=== PATIENT | female | born 1935 | race Caucasian/White ===

== ENCOUNTER → 2020-07-07 | Outpatient (CLI) | payer OTHER ==
--- NOTE | 2020-07-07 14:32 | Diagnostic Imaging Report ---
INDICATION: 85-year-old asymmetric postmenopausal female. COMPARISON: None available. FINDINGS: AP Spine L2-L4: [BMD (g/cm2): 0.960] [T-Score: -2.0] [Z-Score: 0.1] [BMD Previous: na] [BMD % Change: na] LT Hip Neck: [BMD (g/cm2): 0.928] [T-Score: -0.8] [Z-Score: 1.7] LT Hip Total: [BMD (g/cm2):0.942] [T-Score:-0.5] [Z-Score: 1.9] [BMD Previous: na] [BMD % Change: na] RT Hip Neck: [BMD (g/cm2):0.891] [T-Score:-1.1] [Z-Score:1.4] RT Hip Total: [BMD (g/cm2):0.875] [T-score:-1.1] [Z-Score:1.4] [BMD Previous:na] [BMD % Change:na] *Indicates significant change from prior examination based on 95% confidence level. World Health Organization criteria for BMD interpretation classify patients as Normal (T-score at or above -1.0), Osteopenic (T-score between -1.0 and -2.5) or Osteoporotic (T-score at or below -2.5). LIMITATIONS AND MODIFICATION: None. FRACTURE RISK (FRAX SCORE): The ten year probability of (%): Major Osteoporotic Fracture: [10.5] Hip Fracture: [2.7] IMPRESSION: 1. Osteopenia (Low bone mass). 2. Baseline examination. 3. See below National Osteoporosis Foundation guidelines on when to potentially initiate pharmacologic therapy. Based on the National Osteoporosis Foundation Guidelines, pharmacologic treatment should be initiated in any of the following, unless clinical conditions suggest otherwise: * Any patient with prior fragility fracture of the hip or vertebrae. A spine fracture indicates 5X risk for subsequent spine fracture and 2X risk for subsequent hip fracture. * Osteoporosis (T-score <-2.5). * Postmenopausal women and men age 50 and older with low bone mass/osteopenia (T-score between -1.0 and -2.5) by DXA and 10-year major osteoporotic fracture greater than 20% or a 10-year probability of hip fracture greater than 3%. These fracture risks are supplied above in the FRAX score, if applicable. * Clinician judgement and/or patient preferences may indicate treatment for people with 10-year fracture probabilities above or below these levels. Dictated by: Dictated on workstation # [id number]
== END ==
LOC: RAD 12:30
PROVIDERS: ATTEND Family Medicine
DX: M85.89 Other specified disorders of bone density and structure, multiple sites (principal); Z78.0 Asymptomatic menopausal state
CPT/HCPCS: 77080

== ENCOUNTER 2021-02-12 17:14 | Emergency (ER) | payer MEDICARE, OTHER ==
--- NOTE | 2021-02-12 17:46 | ED Fall/Injury ---
General Chief Complaint: Trauma-Non Activation Stated Complaint: FALL,SHOULDER PAIN Source: patient Exam Limitations: no limitations (GERARDO NOLEN,) History of Present Illness Date Seen by Provider: Feb 12, 2021 Time Seen by Provider: 17:41 Initial Comments Ms. Howard is an 85-year-old female who presented to the ED via EMS for a fall at home. Patient states she was on the back porch with her daughter and got her feet tangled up and fell. She did hit her head and fell face down. She denies any loss of consciousness or dizziness prior to the fall. She states she is having right shoulder, right hand, and right knee pain. She denies any blurred vision or vision loss, headache, chest pain, shortness of breath, nausea, vomiting. Occurred: this afternoon Severity: moderate Injuries/Pain Location: head, face, upper extremity, lower extremity Context: lost balance Loss of Consciousness: no loss of consciousness Modifying Factors: Improves With Immobilization; Worse With Movement Associated Symptoms (Fall): No Confusion, No Dizziness, No Headache, No Lightheadedness, No Nausea/Vomiting, No Shortness of Air, No Slurred Speech, No Trouble Walking, No Vision Changes (GERARDO NOLEN,) Injuries/Pain Location: head, face, upper extremity, lower extremity Context: lost balance Loss of Consciousness: no loss of consciousness Associated Symptoms (Fall): No Confusion, No Dizziness, No Headache, No Shortness of Air (ANNETTE LUCIO MD) Allergies and Home Medications Allergies Coded Allergies: Sulfa (Sulfonamide Antibiotics) (Verified Allergy, Unknown, 02/12/21) iodine (Verified Allergy, Unknown, 02/12/21) Patient Home Medication List Home Medication List Reviewed: Yes (GERARDO NOLEN,) Home Medication List Reviewed: Yes (ANNETTE LUCIO MD) Review of Systems Review of Systems Constitutional: No dizziness, No weakness Eyes: Denies Blurred Vision, Denies Decreased Acuity Ears, Nose, Mouth, Throat: no symptoms reported Respiratory: No short of breath Cardiovascular: No chest pain Gastrointestinal: No nausea, No vomiting Genitourinary: No dysuria, No frequency Musculoskeletal: joint pain, muscle pain Psychiatric/Neurological: Denies Headache, Denies Numbness, Denies Weakness (GERARDO NOLEN,) All Other Systems Reviewed Negative Unless Noted: Yes (ANNETTE LUCIO MD) Past Eerxljb-Kmmotq-Gmhddg Hx Past Med/Social Hx: Reviewed Nursing Past Med/Soc Hx (GERARDO NOLEN,) Past Med/Social Hx: Reviewed Nursing Past Med/Soc Hx (ANNETTE LUCIO MD) Patient Social History Alcohol Use: Denies Use Smoking Status: Never a Smoker (GERARDO NOLEN,) Past Medical History Surgeries: Yes Orthopedic Respiratory: No Cardiac: No Neurological: No Reproductive Disorders: No Gastrointestinal: No Musculoskeletal: Yes Osteoporosis HEENT: No Cancer: Yes Breast Did You Recieve Any Treatments: Yes What Type of Treatment Did You: Chemotherapy, Surgical Intervention Psychosocial: No Integumentary: No (GERARDO NOLEN,) Family Medical History Reviewed Nursing Family Hx (GERARDO NOLEN,) Reviewed Nursing Family Hx (ANNETTE LUCIO MD) No Pertinent Family Hx (GERARDO NOLEN,) No Pertinent Family Hx (ANNETTE LUCIO MD) Physical Exam Vital Signs Vital Signs - First Documented 02/12/21 17:15 Temp 36.4 Pulse 88 Resp 15 B/P (MAP) 163/75 (104) Pulse Ox 95 O2 Delivery Room Air (ANNETTE LUCIO MD) Vital Signs Capillary Refill : (GERARDO NOLEN,) Height, Weight, BMI Height: '" Weight: lbs. oz. kg; BMI Method: General Appearance: WD/WN, no apparent distress HEENT: PERRL/EOMI Neck: supple, normal inspection Cardiovascular: regular rate, rhythm, no murmur Respiratory: lungs clear, normal breath sounds Gastrointestinal: normal bowel sounds, soft, no organomegaly Neurologic/Psychiatric: alert, oriented x 3 Skin: warm/dry, ecchymosis (over right eye) (GERARDO NOLEN,) General Appearance: WD/WN, no apparent distress HEENT: PERRL/EOMI, pharynx normal Neck: non-tender, supple Cardiovascular: regular rate, rhythm, no murmur Respiratory: lungs clear, normal breath sounds Gastrointestinal: normal bowel sounds, soft Back: normal inspection, no CVA tenderness, no vertebral tenderness Extremities: other (Tender to right shoulder and right knee. Complains of right hand pain but has full range of motion.) Neurologic/Psychiatric: alert, oriented x 3 Skin: warm/dry, ecchymosis (over right eye) (ANNETTE LUCIO MD) [place] Coma Score Best Eye Response: (4) Open Spontaneously Best Verbal Response: (5) Oriented Best Motor Response: (6) Obeys Commands (GERARDO NOLEN,) Progress/Results/Core Measures Results/Orders My Orders Orders - ANNETTE LUCIO MD Shoulder 3 View Right (02/12/21 17:27) Ct Head Wo (02/12/21 17:27) Knee 3 View Right (02/12/21 17:27) (ANNETTE LUCIO MD) Vital Signs/I&O 02/12/21 17:15 Temp 36.4 Pulse 88 Resp 15 B/P (MAP) 163/75 (104) Pulse Ox 95 O2 Delivery Room Air (ANNETTE LUCIO MD) Progress Progress Note : Time: 17:47 Progress Note Will order right shoulder, right hand, right knee XR. Lengthy discussion regarding CT imaging of head. Patient agreeable after counselling. Will proceed with treatment as results return. Declined analgesia at this time. (GERARDO NOLEN,) Progress Note : Progress Note I have seen and evaluated the patient and agree with above except as indicated. I have directed the plan of care. Patient is here after fall where she believes she tripped while on the back deck. She fell face first onto her right shoulder, right hand, right knee and right face. Denies loss of consciousness. This helped up by a neighbor and fire. Presented here with pain with main complaint of right shoulder pain. We did discuss radiological evaluation options and she has elected for CT of the head as well as x-ray of the shoulder and right knee but declined right hand x-ray after ordered. Monitor patient. 1835: Right shoulder does show fracture of proximal humerus. We will place her in sling and have her follow-up with Maikel Vargas. She is familiar with him and has worked with him previously. Discharged home with return precautions. Patient and family verbalized understanding of instructions and agreement with plan. Declined pain medication here. (ANNETTE LUCIO MD) Diagnostic Imaging Diagonstic Imaging: CT Plain Films/CT/US/NM/MRI: head Comments NAME: J[facility]VIR [facility] REC#: [id number] PT STATUS: REG ER : 1935 PHYSICIAN: ANNETTE LUCIO MD ADMIT DATE: 02/12/21/ER FS Draft Date of Exam:02/12/21 CT HEAD WO PROCEDURE: CT head without contrast. TECHNIQUE: Multiple contiguous axial images were obtained through the brain without the use of intravenous contrast. Auto Exposure Controls were utilized during the CT exam to meet ALARA standards for radiation dose reduction. INDICATION: Fall, hit head. COMPARISON: None available. FINDINGS: Age-appropriate volume loss. No intracranial hemorrhage. No intracranial mass, mass effect, midline shift, herniation, hydrocephalus, or extra-axial fluid collection. No definite CT evidence of an acute ischemic infarction. Minimal soft tissue swelling is noted within the right supraorbital region without associated calvarial fracture. Significant mucosal thickening and fluid is noted within the bilateral ethmoid air cells, sphenoid sinuses, right greater than left maxillary sinuses, and the bilateral mastoid air cells. IMPRESSION: No acute intracranial abnormality. Mild right supraorbital soft tissue swelling without underlying calvarial fracture. Extensive paranasal sinus disease. This includes partial opacification of the bilateral mastoid air cells. Dictated on workstation # [id number] Dict: 02/12/21 1747 Trans: 02/12/21 1752 [id number] Interpreted by: BHUMIKA GARCIA MD Electronically signed by: Reviewed: Reviewed by Me Diagonstic Imaging: Xray Plain Films/CT/US/NM/MRI: knee Comments NAME: JASVIR [facility] REC#: [id number] PT STATUS: REG ER : 1935 PHYSICIAN: ANNETTE LUCIO MD ADMIT DATE: 02/12/21/ER FS Draft Date of Exam:02/12/21 KNEE 3 VIEW RIGHT INDICATION: Fall. Bruising to right knee. FINDINGS: There are tricompartment osteoarthritic changes present within the knee with most advanced joint space loss within the medial and patellofemoral compartments. There is note of chondrocalcinosis demonstrated within the medial and lateral menisci. The bones are osteopenic. There is no acute fracture. There is no knee joint effusion. Regional soft tissues are unremarkable. IMPRESSION: 1. 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 No malalignment, acute fracture or suspicious bone lesion demonstrated. There is no evidence of a knee joint effusion. Dictated on workstation # [id number] Dict: 02/12/211806 Trans: 02/12/211808 [facility] [id number] Interpreted by: JOSUE HERRERA MD Electronically signed by: Reviewed: Reviewed by Me Diagonstic Imaging: Xray Plain Films/CT/US/NM/MRI: other (R shoulder) Comments NAME: JASVIR [facility] REC#: [id number] PT STATUS: REG ER : 1935 PHYSICIAN: ANNETTE LUCIO MD ADMIT DATE: 02/12/21/ER FS Signed Date of Exam:02/12/21 SHOULDER 3 VIEW RIGHT INDICATION: Fall. COMPARISON: None available. TECHNIQUE: Three radiographs of the right shoulder dated 02/12/2021. FINDINGS: Mild degenerative changes of the acromioclavicular joint. Vertically oriented lucency with overall lapping shadows is identified involving the proximal aspect of the right humeral shaft extending superiorly to the humeral head. This does not definitely extend to the articular surface. Mild degenerative changes of the acromioclavicular joint. No additional fracture or dislocation. No large volume pleural effusion or pneumothorax. No suspicious radiopaque foreign body. IMPRESSION: Suggestion of an essentially nondisplaced fracture involving the proximal humeral shaft extending to the superior aspect of the right humeral head. This can be confirmed with CT. Mild degenerative changes. Dictated by: Dictated on workstation # [id number] Dict: 02/12/211805 Trans: 02/12/211811 [facility] [id number] Interpreted by: BHUMIKA GARCIA MD Electronically signed by: BHUMIKA GARCIA MD 02/12/211811 Reviewed: Reviewed by Me (GERARDO NOLEN,) Reviewed: Reviewed by Me Reviewed: Reviewed by Me Reviewed: Reviewed by Me (ANNETTE LUCIO MD) Departure Impression Primary Impression: Closed fracture of right proximal humerus Qualified Codes: S42.294A - Other nondisplaced fracture of upper end of right humerus, initial encounter for closed fracture Additional Impressions: Facial contusion Qualified Codes: S00.83XA - Contusion of other part of head, initial encounter Minor head injury Qualified Codes: S09.90XA - Unspecified injury of head, initial encounter Contusion of right knee Qualified Codes: S80.01XA - Contusion of right knee, initial encounter Disposition: 01 HOME, SELF-CARE Condition: Stable Departure-Patient Inst. Decision time for Depature: 18:37 (ANNETTE LUCIO MD) Referrals: NO,LOCAL PHYSICIAN (PCP/Family) Primary Care Physician Patient Instructions: Minor Head Injury (DC), Contusion (DC), Upper Arm Fracture Add. Discharge Instructions: All discharge instructions reviewed with patient and/or family. Voiced understanding. Follow-up with Maikel Vargas early next week. Call his office first thing Monday for appointment. Use sling at all times except while showering. You may take Tylenol/acetaminophen 1000 mg every 6-8 hours as needed for pain. You may take ibuprofen 400 mg every 8 hours as needed for pain only if the Tylenol/acetaminophen is not working. Return for worse pain, weakness, vision or balance problems, vomiting or other concerns as needed. Copy Copies To 1: RAY VARGAS LAUREN, Feb 12, 2021 17:46 ANNETTE LUCIO MD Feb 12, 2021 18:38
--- NOTE | 2021-02-12 17:53 | Diagnostic Imaging Report ---
PROCEDURE: CT head without contrast. TECHNIQUE: Multiple contiguous axial images were obtained through the brain without the use of intravenous contrast. Auto Exposure Controls were utilized during the CT exam to meet ALARA standards for radiation dose reduction. INDICATION: Fall, hit head. COMPARISON: None available. FINDINGS: Age-appropriate volume loss. No intracranial hemorrhage. No intracranial mass, mass effect, midline shift, herniation, hydrocephalus, or extra-axial fluid collection. No definite CT evidence of an acute ischemic infarction. Minimal soft tissue swelling is noted within the right supraorbital region without associated calvarial fracture. Significant mucosal thickening and fluid is noted within the bilateral ethmoid air cells, sphenoid sinuses, right greater than left maxillary sinuses, and the bilateral mastoid air cells. IMPRESSION: No acute intracranial abnormality. Mild right supraorbital soft tissue swelling without underlying calvarial fracture. Extensive paranasal sinus disease. This includes partial opacification of the bilateral mastoid air cells. Dictated by: Dictated on workstation # [id number]
--- NOTE | 2021-02-12 18:10 | Diagnostic Imaging Report ---
INDICATION: Fall. Bruising to right knee. FINDINGS: There are tricompartment osteoarthritic changes present within the knee with most advanced joint space loss within the medial and patellofemoral compartments. There is note of chondrocalcinosis demonstrated within the medial and lateral menisci. The bones are osteopenic. There is no acute fracture. There is no knee joint effusion. Regional soft tissues are unremarkable. IMPRESSION: 1. 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 No malalignment, acute fracture or suspicious bone lesion demonstrated. There is no evidence of a knee joint effusion. Dictated by: Dictated on workstation # [id number]
--- NOTE | 2021-02-12 18:11 | Diagnostic Imaging Report ---
INDICATION: Fall. COMPARISON: None available. TECHNIQUE: Three radiographs of the right shoulder dated 02/12/2021. FINDINGS: Mild degenerative changes of the acromioclavicular joint. Vertically oriented lucency with overall lapping shadows is identified involving the proximal aspect of the right humeral shaft extending superiorly to the humeral head. This does not definitely extend to the articular surface. Mild degenerative changes of the acromioclavicular joint. No additional fracture or dislocation. No large volume pleural effusion or pneumothorax. No suspicious radiopaque foreign body. IMPRESSION: Suggestion of an essentially nondisplaced fracture involving the proximal humeral shaft extending to the superior aspect of the right humeral head. This can be confirmed with CT. Mild degenerative changes. Dictated by: Dictated on workstation # [id number]
[2021-02-12 18:47] VITALS: BP 163/75
== END 2021-02-12 18:46 | disposition home or self-care (01) ==
LOC: EDUNIT# 17:14 → ER FS 17:15
DX: S42.294A Other nondisplaced fracture of upper end of right humerus, initial encounter for closed fracture (principal); S09.90XA Unspecified injury of head, initial encounter; S05.11XA Contusion of eyeball and orbital tissues, right eye, initial encounter; S80.01XA Contusion of right knee, initial encounter; M79.601 Pain in right arm; C50.919 Malignant neoplasm of unspecified site of unspecified female breast; M81.0 Age-related osteoporosis without current pathological fracture; Z88.2 Allergy status to sulfonamides; Z88.8 Allergy status to other drugs, medicaments and biological substances; W18.09XA Striking against other object with subsequent fall, initial encounter; Y92.008 Other place in unspecified non-institutional (private) residence as the place of occurrence of the external cause
CPT/HCPCS: 70450; 73030; 73562

== ENCOUNTER → 2021-02-15 | Outpatient (CLI) | payer MEDICARE ==
--- NOTE | 2021-02-15 17:01 | Diagnostic Imaging Report ---
EXAMINATION: Right shoulder, 2 or more views. HISTORY: Fracture. COMPARISON: 02/12/2021. FINDINGS: There is a healing fracture of the right proximal humerus in unchanged alignment. No new fracture is seen. The glenohumeral joint is normal without dislocation. IMPRESSION: Healing right proximal humeral fracture. Dictated by: Dictated on workstation # [id number]
== END ==
LOC: RAD FS 13:59
PROVIDERS: ATTEND Nurse Practitioner
DX: S42.231D 3-part fracture of surgical neck of right humerus, subsequent encounter for fracture with routine healing (principal)
CPT/HCPCS: 73030

== ENCOUNTER → 2021-03-01 | Outpatient (CLI) | payer MEDICARE ==
--- NOTE | 2021-03-01 16:05 | Diagnostic Imaging Report ---
INDICATION: Right shoulder injury. FINDINGS: Three views of the right shoulder show a transverse fracture of the humeral neck with a longitudinal fracture through the radial tuberosity. The position and alignment appear unchanged compared to 02/15/2021. IMPRESSION: Nondisplaced comminuted fracture of the proximal right humerus, unchanged since 02/15/2021. Dictated by: Dictated on workstation # [id number]
--- NOTE | 2021-03-01 16:27 | Diagnostic Imaging Report ---
INDICATION: Low back pain. FINDINGS: AP and lateral views of the lumbar spine show a grade 1 spondylolisthesis at L4-L5 with slight disc space narrowing at that level. Otherwise, the alignment is normal. There are no compression fractures. The other intervertebral disc spaces are normal. IMPRESSION: Grade 1 spondylolisthesis at L4-L5 with mild disc space narrowing at that level. Dictated by: Dictated on workstation # [id number]
== END ==
LOC: RAD FS 10:21
PROVIDERS: ATTEND Nurse Practitioner
DX: S42.201A Unspecified fracture of upper end of right humerus, initial encounter for closed fracture (principal); M43.16 Spondylolisthesis, lumbar region; M48.061 Spinal stenosis, lumbar region without neurogenic claudication; X58.XXXA Exposure to other specified factors, initial encounter
CPT/HCPCS: 72100; 73030

== ENCOUNTER → 2021-03-08 | Outpatient (CLI) | payer MEDICARE ==
--- NOTE | 2021-03-08 15:51 | Diagnostic Imaging Report ---
INDICATION: SLOW TRANSIT CONSTIPATION; TACHYCARDIA COMPARISON: None. FINDINGS: Supine and upright views of the abdomen show a nondistended bowel gas pattern. No abnormal air fluid levels or free intraperitoneal air is seen. Moderate air and stool is seen scattered throughout the colon. No abnormal extraosseous calcifications are seen. Bony and soft tissue structures are within normal limits. No organomegaly is identified. Accompanying upright chest shows normal heart size and pulmonary vascularity. The lungs are well aerated and clear. The mediastinum is normal in appearance. IMPRESSION: 1. No bowel obstruction or free air. 2. Normal chest. No pneumonia or pulmonary edema. 3. Moderate colonic air and stool. Please correlate for constipation. Dictated by: Dictated on workstation # [id number]
== END ==
LOC: RAD FS 14:08
PROVIDERS: ATTEND Family Medicine
DX: K59.01 Slow transit constipation (principal); R00.0 Tachycardia, unspecified
CPT/HCPCS: 74022

== ENCOUNTER → 2021-03-22 | Outpatient (CLI) | payer MEDICARE ==
[2021-03-22 16:45] LABS: ALANINE AMINOTRANSFERASE 15 U/L (0-55); ALBUMIN 3.9 GM/DL (3.2-4.5); ALKALINE PHOSPHATASE 121 U/L (40-136); BILIRUBIN,TOTAL 0.3 MG/DL (0.1-1.0); BUN/CREATININE RATIO 29; CALCIUM 10.2 MG/DL (8.5-10.1); CARBON DIOXIDE 28 MMOL/L (21-32); CHLORIDE 107 MMOL/L (98-107); CREATININE SERUM 0.78 MG/DL (0.60-1.30); GFR ESTIMATED > 60; GLUCOSE 92 MG/DL (70-105); SODIUM 141 MMOL/L (135-145); TOTAL PROTEIN 6.7 GM/DL (6.4-8.2)
[2021-03-22 16:49] LABS: POTASSIUM 4.2 MMOL/L (3.6-5.0)
--- NOTE | 2021-03-22 17:22 | Diagnostic Imaging Report ---
EXAMINATION: CT abdomen and pelvis without contrast. TECHNIQUE: Multiple contiguous axial images were obtained through the abdomen and pelvis without the use of intravenous contrast. All CT scans use one or more of the following dose optimizing techniques: automated exposure control, MA and/or KvP adjustment based on patient size and exam type or iterative reconstruction. HISTORY: SLOW TRANSIT CONSTIPATION COMPARISON: Acute abdominal series 03/08/2021. FINDINGS: Lung bases: Atelectasis within the lung bases. Solid organs: The liver is normal. The gallbladder is normal. There is no biliary ductal dilation. Pancreas is normal. Spleen is normal. Adrenal glands are normal. The kidneys are normal without visualized calculus or hydronephrosis. Bowel: There is a small hiatal hernia. No bowel obstruction. There is a moderate volume of stool seen throughout the colon. No findings of acute appendicitis. Peritoneum: There is no intraperitoneal free fluid or free air. No suspicious lymphadenopathy. Vasculature: Calcification of the aorta without aneurysm. 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 Musculoskeletal: Multilevel degenerative changes of the spine. There is a compression fracture of the L2 vertebral body which may be new or progressed from 03/01/2021. Pelvis: The uterus and adnexa are normal. The urinary bladder is normal. IMPRESSION: 1. Moderate stool burden throughout the colon compatible with history of constipation. 2. New or progressive compression fracture of the L2 vertebral body compared to 03/01/2021. Recommend correlation with patient history and physical exam. 3. No other acute abnormality in the abdomen or pelvis. Dictated by: Dictated on workstation # [id number]
== END ==
LOC: RAD FS 15:57
PROVIDERS: ATTEND Family Medicine
DX: K59.01 Slow transit constipation (principal); S32.020A Wedge compression fracture of second lumbar vertebra, initial encounter for closed fracture; E78.2 Mixed hyperlipidemia; R10.84 Generalized abdominal pain
CPT/HCPCS: 36415; 74176; 80053

== ENCOUNTER → 2021-03-22 | Outpatient (CLI) | payer MEDICARE ==
--- NOTE | 2021-03-22 10:29 | Diagnostic Imaging Report ---
Indication: Followup right shoulder fracture. Time of exam: 10:20 AM Comparison is made with shoulder radiographs from 03/01/2021. Healing fracture of the proximal humerus again noted. There is some sclerosis at the fracture site of the humeral neck. There also appears to be some blurring of the fracture lines of the more longitudinally oriented fracture through the greater tuberosity. Fracture lines do remain partially visible however. Glenohumeral alignment is normal. Acromioclavicular alignment is normal. Acromiohumeral space is normal. Impression: Healing proximal humerus fracture when compared to examination one month earlier. Dictated by: Dictated on workstation # [id number]
== END ==
LOC: RAD FS 10:04
PROVIDERS: ATTEND Nurse Practitioner
DX: S42.231D 3-part fracture of surgical neck of right humerus, subsequent encounter for fracture with routine healing (principal); X58.XXXD Exposure to other specified factors, subsequent encounter
CPT/HCPCS: 73030

== ENCOUNTER → 2021-04-16 | Outpatient (CLI) | payer MEDICARE | LOC: CARD 13:00 | PROVIDERS: ATTEND Family Medicine | DX: R00.0 Tachycardia, unspecified (principal) | CPT/HCPCS: 93306 ==

== ENCOUNTER 2021-04-21 11:45 | Outpatient (RCR) | payer MEDICARE ==
[2021-04-21] MEDS ORDERED: REGADENOSON 0.4 MG/5 ML SYR (LEXISCAN) IV ONE (12:15)
== END 2021-07-20 | disposition home or self-care (01) ==
LOC: CARD 11:45
PROVIDERS: ATTEND Family Medicine
DX: I25.10 Atherosclerotic heart disease of native coronary artery without angina pectoris (principal); R07.2 Precordial pain; I10 Essential (primary) hypertension; R00.0 Tachycardia, unspecified

== ENCOUNTER → 2021-04-21 | Outpatient (CLI) | payer MEDICARE ==
[~2021-04-21] VITALS: Ht 165 cm; Wt 62.0 kg
[~2021-04-21] MED LIST: CATHETER FLUSH 10 ML SYR IV PRN; REGADENOSON 0.4 MG/5 ML SYR (LEXISCAN) IV ONE
[2021-04-21 13:27] VITALS: BP 144/88
--- NOTE | 2021-04-21 15:54 | Cardiology Stress Test Report ---
Stress Test Report Date of Procedure/Referring: Date of Procedure: Apr 21, 2021 PCP Francia Riley MD Admitting Physician Kaleb Johnson MD Indications: CP Baseline Heart Rate: 101 Baseline Blood Pressure: Blood Pressure Systolic: 144 Blood Pressure Diastolic: 88 Baseline Vitals Vital Signs Date Time Temp Pulse Resp B/P (MAP) Pulse Ox O2 Delivery O2 Flow Rate FiO2 04/21/21 13:27 101 144/88 (106) Baseline EKG: Baseline EKG: NSR Summary After explaining the procedure to the patient, she signed a consent and then brought to the stress nuclear laboratory. Patient received 0.4 mg Lexiscan for stress test, ECG, heart rate and blood pressure were monitored continuously. Resting and stress dose of radio tracer were injected, imaging was acquired and reviewed in short axis, horizontal long axis and vertical long axis views. TID: 0.99 SSS: 5 SDS: 2 EF: 60 1. Patient tolerated Lexiscan well 2. Baseline EKG showing poor R wave progression, nonspecific T wave abnormality persisted during test 3. Breast attenuation with fixed defect involving the apex and the basal to mid inferolateral septum, no significant ischemia or infarction on SPECT images 4. Normal left ventricular size, EF 60% FRANCIA RILEY MD Apr 21, 2021 15:54
== END ==
LOC: CARD 12:15
PROVIDERS: ATTEND Internal Medicine Cardiovascular Disease
DX: R07.9 Chest pain, unspecified (principal)
CPT/HCPCS: 78452; 93017; A9502

== ENCOUNTER → 2021-11-29 | Outpatient (CLI) | payer MEDICARE ==
--- NOTE | 2021-11-29 16:49 | Diagnostic Imaging Report ---
INDICATION: Chest pain. TECHNIQUE: PA and lateral films of the chest were obtained at 4:29 PM. FINDINGS: The heart and mediastinal silhouette are normal in appearance. The lungs are clear. There is no pneumothorax or pleural fluid. IMPRESSION: Negative chest. Dictated by: Dictated on workstation # [id number]
--- NOTE | 2021-11-29 17:16 | Diagnostic Imaging Report ---
INDICATION: Pleuritic pain FINDINGS: No rib fracture deformity or bony destructive lesion. No free air beneath the diaphragms. The lungs are clear. Oblique views showed no right rib fracture deformity. No bony destructive process. No suspicious cortical lucency. IMPRESSION: Unremarkable right rib radiographs. Dictated by: Dictated on workstation # [id number]
== END ==
LOC: RAD FS 16:17
PROVIDERS: ATTEND Family Medicine
DX: R07.81 Pleurodynia (principal)
CPT/HCPCS: 71046; 71100

== ENCOUNTER 2023-06-30 05:37 | Outpatient (CLI) | payer MEDICARE ==
[~2023-06-30] VITALS: Ht 165.1 cm; Wt 63.5 kg
[2023-06-30] MEDS ORDERED: TRZ50T PO (11:37)
[2023-06-30] MEDS ORDERED: CETI10TA17 PO (11:37)
[2023-06-30] MEDS ORDERED: DONE10TA41 PO (11:37)
[2023-06-30] MEDS ORDERED: ASPI-1238 PO (11:37)
[2023-06-30] MEDS ORDERED: LINA145C PO (11:37)
[2023-06-30] MEDS ORDERED: LUTE20TA PO (11:37)
[2023-06-30] MEDS ORDERED: MTP25TSR PO (11:37)
== END 2023-06-30 11:38 | disposition home or self-care (01) ==
LOC: PREOP 05:37
PROVIDERS: ATTEND Surgery
DX: Z01.818 Encounter for other preprocedural examination (principal)

== ENCOUNTER 2023-07-03 10:52 | Day surgery (SDC) | payer MEDICARE ==
[~2023-07-03] VITALS: Ht 165 cm; Wt 63.5 kg
[~2023-07-03 10:52] MED LIST changes: +ASPI-1238 PO; -CATHETER FLUSH 10 ML SYR IV PRN; +CETI10TA17 PO; +DONE10TA41 PO; +LINA145C PO; +LUTE20TA PO; +MTP25TSR PO; -REGADENOSON 0.4 MG/5 ML SYR (LEXISCAN) IV ONE; +TRZ50T PO
[2023-07-03] MEDS ORDERED: LACTATED RINGERS 1,000 ML 1,000 ML IV STA (11:03)
[2023-07-03] MEDS ORDERED: HURRICAINE EXT TUBE (BENZOCAINE) XX PRN (11:15)
--- NOTE | 2023-07-03 11:18 | Progress Note-Pre Operative ---
Pre-Operative Progress Note Date of Available H&P: Jun 30, 2023 Date H&P Reviewed: Jul 03, 2023 Time H&P Reviewed: 11:16 History & Physical: H&P Reviewed, Patient Examed, No changes noted Pre-Operative Diagnosis: Dysphagia RAMSEY KHAN DO Jul 03, 2023 11:18
[2023-07-03 11:24] VITALS: BP 144/64
[2023-07-03] MEDS ORDERED: proPOfol INJECTION 200 MG/20 ML VIAL IV ONE (12:19)
[2023-07-03 12:30] VITALS: BP 128/59
--- NOTE | 2023-07-03 12:34 | Anesthesia-General Post-Op ---
MAC Patient Condition Mental Status/LOC: Same as Preop Cardiovascular: Satisfactory Nausea/Vomiting: Absent Respiratory: Satisfactory Pain: Controlled Complications: Absent Post Op Complications Complications None Follow Up Care/Instructions Patient Instructions None needed. Anesthesiology Discharge Order Discharge Order Patient is doing well, no complaints, stable vital signs, no apparent adverse anesthesia problems. No complications reported per nursing. TIFFANIE COTA CRNA Jul 03, 2023 12:34
[2023-07-03 12:35] VITALS: BP 128/59
--- NOTE | 2023-07-03 12:36 | Progress Note-Post Operative ---
Post-Operative Progess Note Surgeon (s)/Bottle Inspector (s) Surgeon RAMSEY KHAN DO Bottle Inspector: none Pre-Operative Diagnosis Dysphagia Post-Operative Diagnosis Gastritis Hiatal hernia Esophagitis Procedure & Operative Findings Date of Procedure 07/03/23 Procedure Performed/Findings EGD with biopsy PROCEDURE NOTE: After informed consent was obtained, the patient was brought to the endoscopy suite, placed in bed in left lateral decubitus position. She was administered IV sedation by the FINANCIAL SALES PROFESSIONAL who then monitored vitals the entire time, heart rate, blood pressure and pulse ox and the scope was inserted down the mouth through the esophagus into the stomach. On the way down, noted some moderate esophagitis in the mid-esophagus, took a picture and pushed into the stomach. Pushed past the antrum into the duodenum; duodenum looked good. Pulled back and did a biopsy of the antrum, then retroflexed the scope and saw a grade III AFS hiatal hernia. I took a picture of this and then pulled the scope into the GE junction, took another picture of the hiatal hernia and then did a biopsy of the GE junction. Pushed the scope back into the stomach, suctioned all the air out of the stomach. At this point pulled the scope up the esophagus and out the mouth. I did not see any blockage or reason for dysphagia. The patient tolerated the procedure, and she recovered in endoscopy suite. Anesthesia Type IV sedation by FINANCIAL SALES PROFESSIONAL Estimated Blood Loss Estimated blood loss (mL): scant Specimens/Packing Specimens Removed antral bx GE jxn bx RAMSEY KHAN DO Jul 03, 2023 12:36
--- NOTE | 2023-07-03 12:37 | Endoscopy Discharge Instruct ---
Endo Procedure/Findings Findings 1.: Gastritis 2.: Hiatal Hernia Discharge Instructions - Activity: You might feel a little sleepy until tomorrow. This is due to the medicine you received to relax you. Until tomorrow, you should: NOT drive a car, operate machinery or power tools. NOT drink any alcoholic beverages. NOT make any important decisions or sign importortant papers. Do not return to work until tomorrow, unless otherwise instructed. Resume previous activities tomorrow. Diet: Start by taking liquids. If you tolerate liquids, advance to solid food. 1.: EGD in 3 years Notify Physician - If you experience excessive bleeding, unusual abdominal pain, fever, or chest pain, contact your doctor immediately. Follow-Up: Other Follow up in my office in one week RAMSEY KHAN DO Jul 03, 2023 12:37
[2023-07-03 12:52] VITALS: BP 128/59
== END 2023-07-03 13:07 | disposition home or self-care (01) ==
LOC: ENDO 10:52
PROVIDERS: ATTEND Surgery
DX: K29.70 Gastritis, unspecified, without bleeding (principal); K44.9 Diaphragmatic hernia without obstruction or gangrene; K20.90 Esophagitis, unspecified without bleeding; Z85.3 Personal history of malignant neoplasm of breast

== ENCOUNTER → 2023-07-21 | Outpatient (CLI) | payer MEDICARE ==
--- NOTE | 2023-07-21 11:15 | Diagnostic Imaging Report ---
INDICATION: Dysphagia. The procedure was performed in conjunction with speech pathology. Video fluoroscopy was performed during the swallowing of barium at multiple consistencies. A total of 80 seconds of fluoroscopic time was utilized. Reference air kerma is 3.2 mGy. The patient ingested thin barium as well as applesauce, banana and cracker consistencies. Oral phase is unremarkable. There is normal epiglottic tilt and laryngeal elevation. Mild vallecular residue is noted with multiple consistencies, however, this did clear after second and third swallows. No laryngeal penetration or aspiration was observed. IMPRESSION: Essentially unremarkable modified barium swallow apart from mild vallecular residue which would clear with repeat swallows. No penetration or aspiration was observed. Dictated by: Dictated on workstation # [id number]
== END ==
LOC: RAD 10:00
PROVIDERS: ATTEND Surgery
DX: R13.10 Dysphagia, unspecified (principal)
CPT/HCPCS: 74230